=== PATIENT | male | born 1990 | race Caucasian/White ===

== ENCOUNTER 2016-10-30 15:55 | Emergency (ER) | payer MEDICAID ==
[~2016-10-30] VITALS: Ht 180.3 cm; Wt 77.1 kg
[2016-10-30 16:10] VITALS: BP 120/66
--- NOTE | 2016-10-30 16:18 | NUR ---
Patient to bed 04.
--- NOTE | 2016-10-30 16:19 | NUR ---
PT PRESENTS TO ER W/C/O MOUTH PAIN X2 MONTHS. PT STATES HE NOTICED WHITE BUMPS IN HIS MOUTH 2 MONTHS AGO AND THEY ARE INTERMITTENTLY PAINFUL; DENIES N/V/D; SKIN IS PINK/WARM/DRY; AAOX4 WITH EVEN AND STEADY GAIT; LUNGS CLEAR BL; HR EVEN AND REGULAR; PT DENIES ANY FEVER, CP, SOB, OR COUGH AT THIS TIME; PATIENT STATES PAIN OF 0/10 AT THIS TIME; VSS; PATIENT POSITIONED FOR COMFORT; HOB ELEVATED; BEDRAILS UP X2; BED DOWN. ER MD MADE AWARE OF PT STATUS.
--- NOTE | 2016-10-30 17:32 | NUR ---
DR CERDA AT BEDSIDE ASSESSING AAO COOPERATIVE PT
[2016-10-30 17:43] VITALS: BP 119/69
--- NOTE | 2016-10-30 17:43 | NUR ---
Patient discharged with v/s stable. Written and verbal after care instructions given and explained. Patient verbalized understanding. Ambulatory with steady gait. All questions addressed prior to discharge. Advised to follow up with PMD.
== END 2016-10-30 17:43 | disposition home or self-care (01) ==
LOC: MED 15:55
DX: K12.1 Other forms of stomatitis (principal); R03.0 Elevated blood-pressure reading, without diagnosis of hypertension